=== PATIENT | female | born 1995 | race Hispanic/Latino ===

== ENCOUNTER 2020-08-25 20:28 | Emergency (ER) | payer MEDICAID, OTHER ==
[2020-08-25 21:02] LABS: APPEARANCE,URINE Cloudy (CLEAR); BILIRUBIN,URINE Negative (NEGATIVE); COLOR,URINE Yellow (YELLOW); GLUCOSE, URINE (UA) Negative (NEGATIVE); KETONES,URINE Trace mg/dL (NEGATIVE); LEUKOCYTE ESTERASE ,URINE Small (NEGATIVE); NITRATE,URINE Negative (NEGATIVE); OCCULT BLOOD,URINE Negative (NEGATIVE); PROTEIN,URINE Trace mg/dL (NEGATIVE)
[2020-08-25 21:07] LABS: HCG,QUAL RESULT NEGATIVE (NEGATIVE)
[2020-08-25] MEDS ORDERED: METOCLOPRAMIDE 10 MG/2 ML VIAL ONE (21:11)
[2020-08-25] MEDS ORDERED: ACETAMINOPHEN 325 MG TAB ONE (21:12)
[2020-08-25] MEDS ORDERED: DiphenhydrAMINE HCL 50 MG/ML VIAL ONE (21:12)
[2020-08-25] MEDS ORDERED: TETANUS/DIPHTHERIA TOXOID [ADULT] 0.5 ML VIAL IM ONE (21:12)
[2020-08-25 21:42] LABS: BACTERIA,URINE Few /HPF (None Seen); MUCUS,URINE Few LPF (None Seen); RBC,URINE 0-1 /HPF (0-1); SQUAMOUS EPITHELIAL CELL,UR Moderate /HPF (0-2); WBC,URINE 0-1 /HPF (0-1)
== END 2020-08-25 22:34 | disposition home or self-care (01) ==
LOC: EDH 20:28
DX: S00.03XA Contusion of scalp, initial encounter (principal); S60.811A Abrasion of right wrist, initial encounter; S40.211A Abrasion of right shoulder, initial encounter; J45.909 Unspecified asthma, uncomplicated; Z88.6 Allergy status to analgesic agent; Z79.899 Other long term (current) drug therapy; W01.198A Fall on same level from slipping, tripping and stumbling with subsequent striking against other object, initial encounter; Y93.89 Activity, other specified; Y92.89 Other specified places as the place of occurrence of the external cause; Y99.8 Other external cause status
CPT/HCPCS: 70450; 70486; 73100; 81001; 81025; 90471; 90714; 96361; 96374; 96375; 99285; J1200; J2765; J7030

== ENCOUNTER 2020-09-06 14:48 | Emergency (ER) | payer MEDICAID ==
[~2020-09-06] VITALS: Ht 149.9 cm; Wt 81.2 kg
[2020-09-06] MEDS ORDERED: CEFTRIAXONE SODIUM 1 GM IVP ONE (14:49)
[2020-09-06 14:50] VITALS: BP 144/94
[2020-09-06 15:36] LABS: APPEARANCE,URINE Turbid (CLEAR); BILIRUBIN,URINE Negative (NEGATIVE); COLOR,URINE Red (YELLOW); GLUCOSE, URINE (UA) Negative (NEGATIVE); KETONES,URINE Negative (NEGATIVE); LEUKOCYTE ESTERASE ,URINE Moderate (NEGATIVE); NITRATE,URINE Negative (NEGATIVE); OCCULT BLOOD,URINE Large (NEGATIVE); PH,URINE >=9.0 (5.0-8.0); PROTEIN,URINE POS 2+ mg/dL (NEGATIVE)
[2020-09-06 15:47] LABS: BACTERIA,URINE Moderate /HPF (None Seen); MUCUS,URINE Moderate LPF (None Seen); RBC,URINE 26-50 /HPF (0-1); SQUAMOUS EPITHELIAL CELL,UR Few /HPF (0-2)
[2020-09-06 15:52] LABS: BASOPHILS % (AUTO) 0.2 % (0.0-5.0); EOSINOPHILS % (AUTO) 0.7 % (0.0-8.0); HEMATOCRIT 39.6 % (36-48); LYMPHOCYTES % (AUTO) 29.6 % (21.0-51.0); MEAN CORPUSCULAR HEMOGLOBIN 29.3 pg (27.0-33.0); MEAN CORPUSCULAR HGB CONC 32.6 g/dL (32.0-36.0); MONOCYTES % (AUTO) 8.5 % (3.0-13.0); NEUTROPHILS % (AUTO) 60.8 % (40.0-77.0); PLATELET COUNT (AUTO) 326 K/uL (130-400); RED CELL DISTRIBUTION WIDTH 13.6 % (11.0-15.5); WHITE BLOOD COUNT (AUTO) 9.4 K/uL (4.8-10.8)
[2020-09-06 16:01] LABS: POTASSIUM 3.8 mmol/L (3.5-5.1)
[2020-09-06 16:13] LABS: ALBUMIN 3.9 g/dL (3.5-5.0); BILIRUBIN,TOTAL 0.2 mg/dL (0.2-1.0)
[2020-09-06] MEDS ORDERED: CEFTRIAXONE SODIUM 500 MG (DOSE 250-750MG) VIAL IM SCH (16:13)
[2020-09-06] MEDS ORDERED: CEPH500B PO (16:27)
[2020-09-06] MEDS ORDERED: LIDOCAINE HCL 1% 20 ML VIAL MISC SCH (16:30)
== END 2020-09-06 17:04 | disposition home or self-care (01) ==
LOC: EDH 14:48
DX: N93.9 Abnormal uterine and vaginal bleeding, unspecified (principal); N39.0 Urinary tract infection, site not specified; Z88.5 Allergy status to narcotic agent
CPT/HCPCS: 36415; 76801; 80053; 81001; 84702; 85025; 87088; 96372; 99284; J0696

== ENCOUNTER 2021-07-18 21:38 | Emergency (ER) | payer MEDICAID ==
[~2021-07-18] VITALS: Ht 149.9 cm; Wt 79.8 kg
[~2021-07-18 21:38] MED LIST: CEPH500B PO
[2021-07-18 23:03] VITALS: BP 127/63
[2021-07-18 23:10] LABS: BASOPHILS % (AUTO) 0.2 % (0.0-5.0); EOSINOPHILS % (AUTO) 0.5 % (0.0-8.0); HEMATOCRIT 35.9 % (36-48); LYMPHOCYTES % (AUTO) 25.3 % (21.0-51.0); MEAN CORPUSCULAR HEMOGLOBIN 29.1 pg (27.0-33.0); MEAN CORPUSCULAR HGB CONC 33.1 g/dL (32.0-36.0); MEAN CORPUSCULAR VOLUME 87.8 fL (79-99); MONOCYTES % (AUTO) 5.8 % (3.0-13.0); PLATELET COUNT (AUTO) 288 K/uL (130-400); RED BLOOD CELL COUNT(AUTO) 4.09 MIL/uL (4.00-5.50); RED CELL DISTRIBUTION WIDTH 12.9 % (11.0-15.5)
[2021-07-18 23:20] LABS: CREATININE 0.5 mg/dL (0.5-1.5); POTASSIUM 3.8 mmol/L (3.5-5.1)
[2021-07-18 23:36] LABS: APPEARANCE,URINE Cloudy (CLEAR); BILIRUBIN,URINE Negative (NEGATIVE); COLOR,URINE Yellow (YELLOW); GLUCOSE, URINE (UA) Negative (NEGATIVE); KETONES,URINE Trace mg/dL (NEGATIVE); LEUKOCYTE ESTERASE ,URINE Small (NEGATIVE); NITRATE,URINE Negative (NEGATIVE); OCCULT BLOOD,URINE Negative (NEGATIVE); PROTEIN,URINE Negative (NEGATIVE)
[2021-07-18 23:42] LABS: AMORPHOUS SEDIMENT,UR Many /LPF (None Seen); BACTERIA,URINE None Seen /HPF (None Seen); RBC,URINE None Seen /HPF (0-1); SQUAMOUS EPITHELIAL CELL,UR Moderate /HPF (0-2)
[2021-07-18 23:46] LABS: ALBUMIN 3.4 g/dL (3.5-5.0); BILIRUBIN,TOTAL 0.2 mg/dL (0.2-1.0); TOTAL PROTEIN, SERUM 7.4 g/dL (6.0-8.3)
== END 2021-07-19 00:55 | disposition home or self-care (01) ==
LOC: EDH 21:38
DX: O26.891 Other specified pregnancy related conditions, first trimester (principal); R10.2 Pelvic and perineal pain; O99.511 Diseases of the respiratory system complicating pregnancy, first trimester; J45.909 Unspecified asthma, uncomplicated; O21.9 Vomiting of pregnancy, unspecified; Z88.5 Allergy status to narcotic agent; Z3A.13 13 weeks gestation of pregnancy
CPT/HCPCS: 36415; 76801; 80053; 81001; 84702; 85025

== ENCOUNTER 2021-09-30 00:52 | Observation (INO) | payer OTHER, MEDICAID ==
[~2021-09-30] VITALS: Ht 149.9 cm; Wt 85.3 kg
[2021-09-30 00:54] VITALS: BP 112/66
[2021-09-30] MEDS ORDERED: LACTATED RINGERS 1000ML IV PRN (01:00)
[2021-09-30] MEDS ORDERED: LOPERAMIDE HCL 2 MG CAP PO ONE (03:00)
[2021-09-30] MEDS ORDERED: LACTATED RINGERS 1000ML 1,000 ML IV SCH (03:00)
== END 2021-09-30 09:00 | disposition home or self-care (01) ==
LOC: EDH 00:52 → LDH 00:53
PROVIDERS: ADMIT Obstetrics & Gynecology; ATTEND Obstetrics & Gynecology
DX: O26.892 Other specified pregnancy related conditions, second trimester (principal); R10.30 Lower abdominal pain, unspecified; R19.7 Diarrhea, unspecified; O62.9 Abnormality of forces of labor, unspecified; Z3A.23 23 weeks gestation of pregnancy
CPT/HCPCS: 59025; 76805; 82948; 96360; 96361; G0378

== ENCOUNTER 2021-11-08 17:08 | Observation (INO) | payer OTHER, MEDICAID ==
[~2021-11-08] VITALS: Ht 149.9 cm; Wt 89.4 kg
[2021-11-08 17:10] VITALS: BP 132/78
[2021-11-08 18:51] LABS: APPEARANCE,URINE SL CLOUDY (CLEAR); BILIRUBIN,URINE NEGATIVE (NEGATIVE); COLOR,URINE YELLOW (YELLOW); GLUCOSE, URINE (UA) NEGATIVE (NEGATIVE); KETONES,URINE 40 mg/dL (NEGATIVE); LEUKOCYTE ESTERASE ,URINE SMALL (NEGATIVE); NITRATE,URINE NEGATIVE (NEGATIVE); OCCULT BLOOD,URINE NEGATIVE (NEGATIVE); PROTEIN,URINE NEGATIVE (NEGATIVE); UROBILINOGEN,URINE 0.2 mg/dL (0.2-1.0)
[2021-11-08 19:11] LABS: BACTERIA,URINE Few /HPF (None Seen); RBC,URINE 0-1 /HPF (0-1)
[2021-11-08 19:12] LABS: SQUAMOUS EPITHELIAL CELL,UR Moderate /HPF (0-2)
== END 2021-11-08 23:50 | disposition home or self-care (01) ==
LOC: EDH 17:08 → LDH 17:09
PROVIDERS: ADMIT Obstetrics & Gynecology; ATTEND Obstetrics & Gynecology
DX: O24.414 Gestational diabetes mellitus in pregnancy, insulin controlled (principal); O99.513 Diseases of the respiratory system complicating pregnancy, third trimester; J45.909 Unspecified asthma, uncomplicated; O99.891 Other specified diseases and conditions complicating pregnancy; M25.552 Pain in left hip; W19.XXXA Unspecified fall, initial encounter; Y93.89 Activity, other specified; Y92.89 Other specified places as the place of occurrence of the external cause
CPT/HCPCS: 99284; 81001; 76805; G0378 ×5

== ENCOUNTER 2021-12-04 13:50 | Observation (INO) | payer OTHER, MEDICAID ==
[~2021-12-04] VITALS: Ht 149.9 cm; Wt 90.7 kg
[2021-12-04 13:55] VITALS: BP 135/77
[2021-12-04 14:42] LABS: APPEARANCE,URINE CLEAR (CLEAR); BILIRUBIN,URINE NEGATIVE (NEGATIVE); COLOR,URINE YELLOW (YELLOW); GLUCOSE, URINE (UA) NEGATIVE (NEGATIVE); KETONES,URINE NEGATIVE (NEGATIVE); LEUKOCYTE ESTERASE ,URINE SMALL (NEGATIVE); NITRATE,URINE NEGATIVE (NEGATIVE); OCCULT BLOOD,URINE NEGATIVE (NEGATIVE); PROTEIN,URINE NEGATIVE (NEGATIVE); UROBILINOGEN,URINE 0.2 mg/dL (0.2-1.0)
[2021-12-04 14:58] LABS: BACTERIA,URINE Few /HPF (None Seen); RBC,URINE 0-1 /HPF (0-1)
[2021-12-04 14:59] LABS: SQUAMOUS EPITHELIAL CELL,UR Few /HPF (0-2)
== END 2021-12-04 16:15 | disposition home or self-care (01) ==
LOC: EDH 13:50 → LDH 13:51
PROVIDERS: ADMIT Obstetrics & Gynecology; ATTEND Obstetrics & Gynecology
DX: O26.893 Other specified pregnancy related conditions, third trimester (principal); R10.10 Upper abdominal pain, unspecified; K59.00 Constipation, unspecified; Z3A.32 32 weeks gestation of pregnancy
CPT/HCPCS: 59025; 81001; G0378 ×2; G0379

== ENCOUNTER 2022-01-07 21:46 | Inpatient (IN) | payer OTHER, MEDICAID ==
[~2022-01-07] VITALS: Ht 149.9 cm; Wt 96.2 kg
[2022-01-07] MEDS ORDERED: CEFAZOLIN SODIUM 1 GM VIAL IVP PRN (22:30)
[2022-01-07] MEDS ORDERED: LACTATED RINGERS 1000ML 1,000 ML IV SCH (22:30)
[2022-01-07 23:01] LABS: APPEARANCE,URINE CLEAR (CLEAR); BILIRUBIN,URINE NEGATIVE (NEGATIVE); COLOR,URINE LIGHT-YELLOW (YELLOW); GLUCOSE, URINE (UA) NEGATIVE (NEGATIVE); KETONES,URINE NEGATIVE (NEGATIVE); LEUKOCYTE ESTERASE ,URINE 75 Leu/uL (NEGATIVE); NITRATE,URINE NEGATIVE (NEGATIVE); OCCULT BLOOD,URINE NEGATIVE (NEGATIVE); PH,URINE 6.5 (5.0-8.0); PROTEIN,URINE NEGATIVE (NEGATIVE); UROBILINOGEN,URINE 0.2 mg/dL (0.2-1.0)
[2022-01-07 23:08] LABS: AMPHET/METH SCREEN,URINE NEGATIVE (NEGATIVE); BACTERIA,URINE RARE /HPF (None Seen); BARBITURATE SCREEN, URINE NEGATIVE (NEGATIVE); BENZODIAZEPINES SCREEN,URINE NEGATIVE (NEGATIVE); CANNABINOID SCREEN,URINE NEGATIVE (NEGATIVE); COCAINE SCREEN,URINE NEGATIVE (NEGATIVE); MUCUS,URINE RARE LPF (None Seen); OTHER CASTS, URINE 1 /LPF (None Seen); PHENCYCLIDINE SCREEN,URINE NEGATIVE (NEGATIVE); SQUAMOUS EPITHELIAL CELL,UR RARE /HPF (0-2); YEAST,URINE BUDDING RARE /HPF (None Seen)
[2022-01-07 23:38] LABS: HEMATOCRIT 30.9 % (36-48); MEAN CORPUSCULAR HEMOGLOBIN 27.2 pg (27.0-33.0); MEAN CORPUSCULAR VOLUME 84.9 fL (79-99); RED BLOOD CELL COUNT(AUTO) 3.64 MIL/uL (4.00-5.50); RED CELL DISTRIBUTION WIDTH 14.2 % (11.0-15.5); WHITE BLOOD COUNT (AUTO) 10.1 K/uL (4.8-10.8)
[2022-01-08] MEDS ORDERED: CEFAZOLIN SODIUM 1 GM VIAL IVP PRN (07:00)
[2022-01-08] MEDS ORDERED: CALDOLOR 800MG+NS 250ML 250 ML IV PRN (07:30)
[2022-01-08] MEDS ORDERED: OXYTOCIN-LR 20 UNITS/1000 ML 1,000 ML IV SCH (07:30)
[2022-01-08] MEDS ORDERED: LACTATED RINGERS 1000ML 1,000 ML IV SCH (07:30)
[2022-01-08] MEDS ORDERED: DEXTROSE 50%-WATER 50 ML DISP.SYRIN IV ONE ×2 (07:54→08:30)
[2022-01-08] MEDS ORDERED: FENTANYL CITRATE PF 50 MCG/1 ML 2ML VIAL ONE (08:14)
[2022-01-08] MEDS ORDERED: MORPHINE PF 100MG/10ML AMP IV ONE (08:14)
[2022-01-08] MEDS: CITRIC ACID/SODIUM CITRATE 30 ML UDCUP PO SCH (08:45)
[2022-01-08] MEDS ORDERED: OXYTOCIN 10 USP UNITS/ML ONE (09:26)
[2022-01-08] MEDS ORDERED: ONDANSETRON 4MG INJ ONE (09:38)
[2022-01-08] MEDS ORDERED: MIDAZOLAM HCL 1 MG/ML 2ML VIAL ONE (09:50)
[2022-01-08] MEDS ORDERED: PHENYLEPHRINE HCL 10 MG/ML 1ML VIAL IV ONE (10:15)
[2022-01-08] MEDS ORDERED: 0.9%NACL 10ML VIAL IVP PRN (10:30)
[2022-01-08] MEDS: CEFAZOLIN SODIUM 1 GM VIAL IVP SCH ×2 (10:30→18:25)
[2022-01-08] MEDS ORDERED: MEPERIDINE-PF 75 MG/ML SYG IM PRN (10:30)
[2022-01-08] MEDS ORDERED: PROMETHAZINE HCL 25 MG/ML 1ML AMPULE IM PRN (10:30)
[2022-01-08] MEDS ORDERED: OXYTOCIN-LR 20 UNITS/1000 ML 1,000 ML IV PRN (10:30)
[2022-01-08] MEDS: INSULIN HUMULIN R 100 UNIT/ML 3ML SQ SCH ×3 (11:30→21:00)
[2022-01-08 12:05] LABS: RAPID PLASMA REAGIN NONREACTIVE (NONREACTIVE)
[2022-01-08 12:43] VITALS: BP 125/76
[2022-01-08] MEDS ORDERED: LORATADINE 10 MG TABLET PO PRN (13:00)
[2022-01-08] MEDS ORDERED: NALOXONE HCL 0.4 MG/1 ML ML IVP PRN ×2 (13:00)
[2022-01-08] MEDS ORDERED: DiphenhydrAMINE HCL 50 MG/ML VIAL IVP PRN (13:00)
[2022-01-08] MEDS ORDERED: EPHEDRINE SULFATE 50 MG/ML AMPULE IVP PRN (13:00)
[2022-01-08] MEDS: ONDANSETRON 4MG INJ IVP PRN ×3 (13:09→18:25)
[2022-01-08] MEDS ORDERED: PREN-154 PO (13:24)
[2022-01-08] MEDS ORDERED: OMEP20TA2 PO (13:34)
[2022-01-08] MEDS ORDERED: INSNOV SQ (13:34)
[2022-01-08 16:53] VITALS: BP 111/54
[2022-01-08] MEDS: CALDOLOR 800MG+NS 250ML 250 ML IV SCH (18:25)
[2022-01-08] MEDS: DEXTROSE 5 %-0.45 % NACL 1,000 ML IV PRN (18:26)
[2022-01-08] MEDS ORDERED: METOCLOPRAMIDE 10 MG/2 ML VIAL IVP PRN (19:00)
[2022-01-08 19:02] VITALS: BP 96/54
[2022-01-08 23:08] VITALS: BP 106/53
[2022-01-09] MEDS: CEFAZOLIN SODIUM 1 GM VIAL IVP SCH (02:16)
[2022-01-09] MEDS: CALDOLOR 800MG+NS 250ML 250 ML IV SCH (02:17)
[2022-01-09 03:47] VITALS: BP 100/50
[2022-01-09] MEDS ORDERED: LANOLIN 30GM OINTMENT TP PRN (06:00)
[2022-01-09] MEDS ORDERED: ACETAMINOPHEN 500 MG TABLET PO PRN (06:00)
[2022-01-09] MEDS ORDERED: ACETAMINOPHEN WITH CODEINE 1 TAB TAB PO PRN (06:00)
[2022-01-09] MEDS ORDERED: BISACODYL 10 MG SUPP.RECT RC PRN (06:00)
[2022-01-09] MEDS ORDERED: HYDROCODONE/ACETAMINOPHEN 5/325 MG TAB PO PRN (06:00)
[2022-01-09] MEDS: DEXTROSE 5 %-0.45 % NACL 1,000 ML IV PRN (06:08)
[2022-01-09 06:37] LABS: MEAN CORPUSCULAR HEMOGLOBIN 27.6 pg (27.0-33.0); MEAN CORPUSCULAR HGB CONC 32.1 g/dL (32.0-36.0); MEAN CORPUSCULAR VOLUME 86.1 fL (79-99); RED BLOOD CELL COUNT(AUTO) 3.37 MIL/uL (4.00-5.50); RED CELL DISTRIBUTION WIDTH 14.2 % (11.0-15.5); WHITE BLOOD COUNT (AUTO) 12.5 K/uL (4.8-10.8)
[2022-01-09] MEDS: INSULIN HUMULIN R 100 UNIT/ML 3ML SQ SCH ×4 (07:30→21:00)
[2022-01-09 07:40] VITALS: BP 112/73
[2022-01-09] MEDS: DOCUSATE SODIUM 100 MG CAP PO SCH ×2 (09:13→20:13)
[2022-01-09] MEDS: SIMETHICONE 80 MG TAB.CHEW PO PRN ×2 (09:13→20:13)
[2022-01-09] MEDS: IBUPROFEN 600 MG TABLET PO PRN ×2 (09:13→16:09)
[2022-01-09] MEDS: TRAMADOL HCL 50 MG TABLET PO PRN ×2 (12:52→20:14)
[2022-01-09 13:16] VITALS: BP 111/59
[2022-01-09 16:15] VITALS: BP 112/77
[2022-01-09] MEDS: DIPH,PERTUSS(ACELL),TET VAC/PF 0.5 ML VIAL IM SCH ×2 (17:32→21:06)
[2022-01-09 19:30] VITALS: BP 119/65
[2022-01-09] MEDS: CITRIC ACID/SODIUM CITRATE 30 ML UDCUP PO SCH (21:06)
[2022-01-09 23:30] VITALS: BP 117/63
[2022-01-10] MEDS: IBUPROFEN 600 MG TABLET PO PRN ×2 (02:05→08:23)
[2022-01-10 03:05] VITALS: BP 112/62
[2022-01-10 07:30] VITALS: BP 113/79
[2022-01-10] MEDS: INSULIN HUMULIN R 100 UNIT/ML 3ML SQ SCH (07:30)
[2022-01-10] MEDS: SIMETHICONE 80 MG TAB.CHEW PO PRN (08:22)
[2022-01-10] MEDS ORDERED: IBUP-2077 PO (09:33)
[2022-01-10] MEDS ORDERED: TRAM50TA4 PO (09:35)
== END 2022-01-10 11:20 | disposition home or self-care (01) | DRG 788 ==
LOC: LDH 21:46 → WSH 01-08 12:40
PROVIDERS: ADMIT Obstetrics & Gynecology; ATTEND Obstetrics & Gynecology
PROC: 10D00Z1 Extraction of Products of Conception, Low, Open Approach (ICD-10-PCS; principal; 2022-01-08 09:00)
DX: O36.63X0 Maternal care for excessive fetal growth, third trimester, not applicable or unspecified (principal); O24.429 Gestational diabetes mellitus in childbirth, unspecified control; O99.214 Obesity complicating childbirth; Z20.822 Contact with and (suspected) exposure to COVID-19; O69.1XX0 Labor and delivery complicated by cord around neck, with compression, not applicable or unspecified; Z3A.37 37 weeks gestation of pregnancy; Z37.0 Single live birth
CPT/HCPCS: 36415; 59510; 80305; 81001; 82947; 82948; 85027; 86592; 86701; 86850; 86900; 86901; 87088; 87340; 87390; 87635; 90715; A4344; G0378; J0690; J1741; J2250; J2274; J2370; J2405; J2590; J3010; J7070; J7120

== ENCOUNTER 2022-03-26 02:14 | Emergency (ER) | payer OTHER, MEDICAID ==
[~2022-03-26] VITALS: Ht 149.9 cm; Wt 87.5 kg
[~2022-03-26 02:14] MED LIST changes: -CEPH500B PO; +IBUP-2077 PO; +OMEP20TA2 PO; +PREN-154 PO; +TRAM50TA4 PO
[2022-03-26 02:16] VITALS: BP 151/80
[2022-03-26 02:38] LABS: BASOPHILS % (AUTO) 0.2 % (0.0-5.0); EOSINOPHILS % (AUTO) 1.2 % (0.0-8.0); LYMPHOCYTES % (AUTO) 33.9 % (21.0-51.0); MEAN CORPUSCULAR HEMOGLOBIN 27.4 pg (27.0-33.0); MEAN CORPUSCULAR HGB CONC 32.7 g/dL (32.0-36.0); MEAN CORPUSCULAR VOLUME 83.7 fL (79-99); MONOCYTES % (AUTO) 6.7 % (3.0-13.0); NEUTROPHILS % (AUTO) 57.7 % (40.0-77.0); PLATELET COUNT (AUTO) 322 K/uL (130-400); RED BLOOD CELL COUNT(AUTO) 4.42 MIL/uL (4.00-5.50); RED CELL DISTRIBUTION WIDTH 15.2 % (11.0-15.5); WHITE BLOOD COUNT (AUTO) 10.4 K/uL (4.8-10.8)
[2022-03-26 02:50] LABS: CREATININE 0.7 mg/dL (0.5-1.5)
[2022-03-26 02:54] LABS: ALBUMIN 3.7 g/dL (3.5-5.0); TOTAL PROTEIN, SERUM 7.6 g/dL (6.0-8.3)
[2022-03-26] MEDS ORDERED: OMEP40CA21 PO (03:40)
[2022-03-26] MEDS ORDERED: IBUP-1493 PO (03:40)
[2022-03-26 03:53] LABS: APPEARANCE,URINE CLEAR (CLEAR); BILIRUBIN,URINE NEGATIVE (NEGATIVE); COLOR,URINE LIGHT-YELLOW (YELLOW); GLUCOSE, URINE (UA) NEGATIVE (NEGATIVE); KETONES,URINE NEGATIVE (NEGATIVE); LEUKOCYTE ESTERASE ,URINE NEGATIVE Leu/uL (NEGATIVE); NITRATE,URINE NEGATIVE (NEGATIVE); OCCULT BLOOD,URINE NEGATIVE (NEGATIVE); PROTEIN,URINE NEGATIVE (NEGATIVE); UROBILINOGEN,URINE 0.2 mg/dL (0.2-1.0)
[2022-03-26 03:59] LABS: HCG,QUALITATIVE URINE NEGATIVE (NEGATIVE)
== END 2022-03-26 04:16 | disposition home or self-care (01) ==
LOC: EDH 02:14
DX: K80.50 Calculus of bile duct without cholangitis or cholecystitis without obstruction (principal); Z88.5 Allergy status to narcotic agent; Z79.899 Other long term (current) drug therapy; Z98.890 Other specified postprocedural states
CPT/HCPCS: 36415; 76705; 80053; 81003; 81025; 83690; 85025